=== PATIENT | female | born 1955 | race Caucasian/White ===

== ENCOUNTER → 2018-06-05 | Outpatient (CLI) | payer OTHER ==
[~2018-06-05] MED LIST: LISI-362 PO; RANI-366 PO; SIMV-49 PO
--- NOTE | 2018-06-06 14:57 | RADIOLOGY IMAGING REPORT ---
FACILITY: [facility] PATIENT NAME: LORA MCKEON : [id number] MR: [id number] V: [id number] EXAM DATE: [id number] ORDERING PHYSICIAN: LUC BROWN TECHNOLOGIST: [place] PROCEDURE:BILATERAL DIGITAL SCREENING MAMMOGRAM WITH CAD ASSISTED INTERPRETATION & 3D TOMOSYNTHESIS COMPARISON:Prior mammogram 05/30/17. INDICATIONS:SCREENING FINDINGS: Breast tissue demonstrates scattered fibroglandular tissue elements. There is no suspicious mass, calcification, or architectural distortion. DIAGNOSTIC CATEGORY 1--NEGATIVE. RECOMMENDATIONS: ROUTINE MAMMOGRAM AND CLINICAL EVALUATION. IMPRESSION: BIRADS 1: Negative. No mammographic evidence for malignancy. Dictated by: Abdiel Mancilla M.D. on 06/06/2018 at 11:19 Transcribed by: SHELLY on 06/06/2018 at 11:44 Approved by: Abdiel Mancilla M.D. on 06/06/2018 at 14:57 [facility]
== END ==
LOC: MAMO 01:39
PROVIDERS: ATTEND Family Medicine
DX: Z12.31 Encounter for screening mammogram for malignant neoplasm of breast (principal)
CPT/HCPCS: 77063; 77067

== ENCOUNTER → 2019-06-10 | Outpatient (CLI) | payer OTHER ==
[~2019-06-10] MED LIST changes: -RANI-366 PO; +RANI-54 PO
--- NOTE | 2019-06-17 10:03 | RADIOLOGY IMAGING REPORT ---
FACILITY: [facility] [place] PATIENT NAME: LORA MCKEON : [id number] MR: [id number] V: [id number] EXAM DATE: [id number] ORDERING PHYSICIAN: LUC BROWN TECHNOLOGIST: Binta Altman PROCEDURE: BILATERAL DIGITAL SCREENING MAMMOGRAM WITH CAD ASSISTED INTERPRETATION & 3D TOMOSYNTHESIS. REASON FOR STUDY: Screening. COMPARISON: [facility]. VIEWS OBTAINED: 2D & 3D full field CC & MLO projections. BREAST DENSITY: Scattered fibroglandular densities are present in both breasts. MAMMOGRAM FINDINGS: No masses or suspicious calcifications. IMPRESSION: BIRADS 1: Negative. DIAGNOSTIC CATEGORY 1--NEGATIVE. RECOMMENDATIONS: ROUTINE MAMMOGRAM AND CLINICAL EVALUATION IN 1YR. Dictated by: Lg Sanchez M.D. on 06/11/2019 at 8:31 Transcribed by: SHELLY on 06/11/2019 at 9:32 Approved by: Phylicia Bonilla M.D. on 06/17/2019 at 10:00 [facility]
== END ==
LOC: MAMO 00:45
PROVIDERS: ATTEND Family Medicine
DX: Z12.31 Encounter for screening mammogram for malignant neoplasm of breast (principal); Z80.3 Family history of malignant neoplasm of breast
CPT/HCPCS: 77063; 77067

== ENCOUNTER → 2019-06-24 | Outpatient (CLI) | payer OTHER, MEDICARE ==
--- NOTE | 2019-06-24 14:03 | RADIOLOGY IMAGING REPORT ---
FACILITY: [facility] PATIENT NAME: Christiano Julian : 1955 MR: [id number] V: [id number] EXAM DATE: ORDERING PHYSICIAN: BRIANNA BETTENCOURT TECHNOLOGIST: Location: [facility] [place] Patient: Christiano Julian : 1955 Visit/Account:[id number] Date of Sevice: 06/24/2019 DEXA Scan Clinical history: Osteopenia. Comparison: None available. LUMBAR SPINE: The bone mineral density (BMD) measured from L1-L4 correlates with a Z-score 3.0 and a T-score of 1.4 which is Normal as defined by the World Health Organization. The corresponding risk of fracture in the lumbar spine is Not increased compared with a young adult reference population. HIP: Bone mineral density (BMD) measured in the Left femoral neck region correlates with a Z-score 0.3 and a T-score of 1.1 which is osteopenia as defined by the World Health Organization. The corresponding risk of fracture in the hip is increased compared with a young adult reference population. Bone mineral density (BMD) measured in the Femoral Neck region measures 0.879 g/cm2. Impression: 1. Lumbar spine: Normal. 2. Left femoral neck region: Osteopenia. 3. Femoral Neck: Bone Mineral Density is 0.879 g/cm2 The next DEXA scan of this patient should include the following sites: L1-L4 and the left hip. FRAX? WHO Fracture Risk Assessment Tool link: <http://www.shef.ac.uk/FRAX/tool.jsp?locationValue=9> PLEASE NOTE: 1) The World Health Organization defines low BMD as follows: T-score Normal > -1 Osteopenia < -1 and > -2.5 Osteoporosis < -2.5 without fractures Established osteoporosis < -2.5 with fractures 2) In general, you may wish to consider: Diagnosis Treatment Follow-up DEXA Normal BMD Prevention 2-3 years Osteopenia Prevention/therapy 1-2 years Osteoporosis Therapy Yearly 3) Fracture risk estimated from the T-score is more accurate for vertebral fractures (often spontane ous) than for hip fractures. Report Dictated By: Abdiel Mancilla at 06/24/2019 1:53 PM Report E-Signed By: Abdiel Mancilla at 06/24/2019 1:54 PM WSN:[id number]
== END ==
LOC: RAD 00:14
PROVIDERS: ATTEND Physician Assistant
DX: M85.852 Other specified disorders of bone density and structure, left thigh (principal)
CPT/HCPCS: 77080